=== PATIENT | female | born 1960 | race Caucasian/White ===

== ENCOUNTER 2023-01-13 13:42 | Outpatient (REF) | payer OTHER, SELFPAY ==
--- NOTE | 2023-01-13 13:15 | PAPFT_PTH ---
PATIENT: Meera Mandel LOC: [facility] U#:[id number] AGE/SX: 62/F ROOM: RE01/13/[address]: Allie Thomas NP : 1960 BED: DIS: 01/13/2023 SPEC #: [id number] RECD: 01/13/23 15:14 STATUS: ESPERANZA REMingo #: [id number] RAD: 01/13/23 13:[address]: Allie Thomas NP DEPT: [facility] Cytology RECD BY: Savanah England Tissues: 1 - CX/ENDOCX FOR PAP SMEARS Procedures: PAP THIN PREP/[facility] Screening HPV DNA PROBE Comments: [id number]
== END 2023-01-13 13:43 | disposition home or self-care (01) ==
LOC: LBN 13:42
PROVIDERS: Visit Provider Nurse Practitioner Women's Health
DX: N76.0 Acute vaginitis (principal); Z12.4 Encounter for screening for malignant neoplasm of cervix; Z11.51 Encounter for screening for human papillomavirus (HPV)
CPT/HCPCS: 88142; 87480; 87510; 87624; 87660

== ENCOUNTER 2025-04-25 10:52 | Outpatient (CLI) | payer MEDICARE, SELFPAY ==
[2025-04-25 11:24] LABS: Abs Immature Grans 0.03 10^3/uL (0.0-0.06); HCT 38.6 % (36.0-46.0); HGB 12.4 g/dL (11.2-15.7); Immature Grans % 0.5 %; MCH 30.9 pg (27.0-33.0); MCHC 32.1 % (32.0-36.0); MCV 96 fL (80-95); MPV 11.5 fL (8.0-11.0); Platelet Count 246 10^3/uL (130-400); RBC 4.01 10^6/uL (3.93-5.22); RDW 12.1 % (11.7-14.6); RDW-SD 43.3 fL; WBC 5.84 10^3/uL (4.4-10.8)
[2025-04-25 12:11] LABS: ALT 14 U/L (14-59); AST 10 U/L (15-37); Albumin 3.9 g/dL (3.4-5.0); Alkaline Phosphatase 76 U/L (46-116); Anion Gap 10.9 mmol/L (3-11); BUN 23 mg/dL (7-18); Bilirubin, Total 0.4 mg/dL (0.2-1.0); CO2 22.1 mmol/L (21.0-32.0); Calcium 8.9 mg/dL (8.5-10.1); Chloride 110 mmol/L (98-107); Glucose 104 mg/dL (74-106); Potassium 4.0 mmol/L (3.5-5.1); Sodium 143 mmol/L (136-145); Total Protein 7.5 g/dL (6.4-8.2)
== END 2025-04-25 10:53 | disposition home or self-care (01) ==
LOC: LBO 10:54
PROVIDERS: Visit Provider Student in an Organized Health Care Education/Training Program
DX: G43.711 Chronic migraine without aura, intractable, with status migrainosus (principal); G43.719 Chronic migraine without aura, intractable, without status migrainosus
CPT/HCPCS: 36415; 80053; 85025